=== PATIENT | female | born 1990 | race Caucasian/White ===

== ENCOUNTER 2018-12-13 15:22 | Emergency (ER) | payer MEDICAID ==
[~2018-12-13] VITALS: Ht 162.6 cm; Wt 72.6 kg
[2018-12-13 15:48] VITALS: BP 148/76
== END 2018-12-13 17:05 | disposition home or self-care (01) ==
LOC: ER 15:22
DX: F90.9 Attention-deficit hyperactivity disorder, unspecified type (principal); Z76.0 Encounter for issue of repeat prescription